=== PATIENT | male | born 1975 | race Caucasian/White ===

== ENCOUNTER → 2020-11-24 12:02 | Outpatient (BNVA) | payer OTHER, SELFPAY | PROVIDERS: Visit Provider Internal Medicine | DX: K42.9 Umbilical hernia without obstruction or gangrene (principal) | CPT/HCPCS: 87635 ==

== ENCOUNTER 2020-11-28 08:36 | Day surgery (SDC) | payer OTHER, SELFPAY ==
--- NOTE | 2020-11-28 08:45 | ANES.PREANE2 ---
Pre-Anesthetic Assessment Pre-Anesthetic Assessment: Height/Weight: Height 1.91 m Weight 134.717 kg Preop Diagnosis: hematochezia Proposed Procedure: Operation Date: 11/28/20 10:15 Proposed Procedures p Colonoscopy 57552 k92.1(Not Applicable) - Oscar Faustin MD Familial anesthetic complications: None Last intake: > 8 hrs Social: Social History: No alcohol and No tobacco Exam: Pre-Anes Outpt Exam: alert, oriented x 3, clear to auscultation bilaterally and regular rate & rhythm Airway: Cervical ROM: WNL MP: 1 Dentition: Chipped and Other (poor dentition) Additional comments: full carroll Pulmonary: Pulmonary: EATON (deconditioned) Comments: states he's wheezy at night - CTA on exam GI: GI: GERD Metabolic: Metabolic: Morbid obesity Anesthetic Plan: ASA status: 3 Anesthesia: MAC Risk of > 500 ml blood loss (7ml/kg in children): No PFSH Anesthesia PFSH: Medical History Umbilical hernia without obstruction and without gangrene Social History Smoking and tobacco status: former smoker Data Anesthesia Cardiac Studies: No Data to Display
--- NOTE | 2020-11-28 09:18 | W.PM.OPSFHP ---
Same Day Surgery H&P Indication for Procedure/HPI DATE OF PROCEDURE: November 28, 2020 CHIEF COMPLAINT/INDICATIONFOR SURGICAL PROCEDURE: Hematochezia PREOP DIAGNOSIS: hematochezia PLANNED PROCEDRUE: Operation Date: 11/28/20 10:15 Proposed Procedures p Colonoscopy 25795 k92.1(Not Applicable) - Oscar Faustin MD Medications/Allergies* Home Medications Medication Instructions Recorded Confirmed Type cholecalciferol (vitamin D3) 50 50 mcg PO DAILY 11/03/20 11/25/20 History mcg (2,000 unit) capsule lithium carbonate 450 mg 450 mg PO DAILY 11/03/20 11/25/20 History tablet,extended release omega-3 fatty acids 1,000 mg 1,000 mg PO DAILY 11/03/20 11/25/20 History capsule omeprazole 20 mg capsule,delayed 20 mg PO DAILY 11/03/20 11/25/20 History release multivitamin 1 tab PO DAILY 11/25/20 11/25/20 History Allergies/Adverse Reactions Allergy/AdvReac Type Severity Reaction Status Date / Time No Known Allergies Allergy Verified 11/24/20 10:51 Pertinent History/Comorbid Conditions* Medical History (Updated 11/24/20 @ 11:22 by Oscar Faustin MD) Umbilical hernia without obstruction and without gangrene Social History Smoking and tobacco status: former smoker Pertinent Exam Findings alert, oriented x 3, clear to auscultation bilaterally, regular rate & rhythm, operative site marked and procedure specific exam findings Recommendations Surgery/Procedure today Coding Level of Care Code Acute Health Occupations Teacher for Getachew Guallpa
[2020-11-28 09:23] VITALS: BP 122/91; PULSE 106; RESP 18; TEMP 36.3; O2SAT 95
[2020-11-28] MEDS: sodium chloride 0.9% 1,000 ML 30 ML IV (09:54)
[2020-11-28 11:18] VITALS: BP 121/90; PULSE 93; RESP 18; TEMP 36.2; O2SAT 94
--- NOTE | 2020-11-28 11:21 | ANE.PACU2 ---
Inpatient post-anesthesia follow up: Airway intact: Yes Vital signs: Temperature 97.4 F Pulse Rate 106 Respiratory Rate 18 Blood Pressure 122/91 Pulse Oximetry 95 Oxygen Delivery Me thod Room Air Oxygen Flow Rate Fraction of Inspir ed Oxygen Hydration adequate: Yes Nausea and vomiting: No Pain level: 1 Mental status: Baseline
[2020-11-28 11:36] VITALS: BP 136/100; PULSE 94; RESP 18; O2SAT 94
== END 2020-11-28 11:48 | disposition home or self-care (01) ==
PROVIDERS: Visit Provider Internal Medicine
PROC: 0DJD8ZZ Inspection of Lower Intestinal Tract, Via Natural or Artificial Opening Endoscopic (ICD-10-PCS; CPT 45378; principal; 2020-11-28 10:15)
DX: K92.1 Melena (principal); D12.5 Benign neoplasm of sigmoid colon; Z87.891 Personal history of nicotine dependence; E66.01 Morbid (severe) obesity due to excess calories; Z68.37 Body mass index [BMI] 37.0-37.9, adult; K21.9 Gastro-esophageal reflux disease without esophagitis
CPT/HCPCS: 45385; 88305; 96360; 96361; J2704; J7030

== ENCOUNTER → 2020-11-30 13:19 | Outpatient (BNVA) | payer OTHER, SELFPAY | PROVIDERS: Visit Provider Surgery | DX: Z01.812 Encounter for preprocedural laboratory examination (principal); K92.1 Melena; Z20.822 Contact with and (suspected) exposure to COVID-19 | CPT/HCPCS: 87635 ==

== ENCOUNTER 2020-12-06 05:46 | Day surgery (SDC) | payer OTHER, SELFPAY ==
[2020-12-05 10:54] VITALS: BMI 37.1
[2020-12-06] VITALS (8 sets, daily range): BP systolic 113–127; BP diastolic 90–94; PULSE 68–78; RESP 17–22; TEMP 36.3–36.4; O2SAT 94–99
[2020-12-06] MEDS: sodium chloride 0.9% 1,000 ML 30 ML IV (06:44)
[2020-12-06] MEDS: acetaminophen 1,000 MG/100 ML PIGGYBACK 400 MG IV (06:45)
--- NOTE | 2020-12-06 06:47 | P.HP_ITS ---
Same Day Surgery H&P Indication for Procedure/HPI DATE OF PROCEDURE: December 06, 2020 CHIEF COMPLAINT/INDICATIONFOR SURGICAL PROCEDURE: My hernia is bothering me PREOP DIAGNOSIS: Umbilical hernia PLANNED PROCEDRUE: Operation Date: 12/06/20 07:30 Proposed Procedures p Open umbilical hernia repair 24672 k42.9(Not Applicable) - Jayden Byrne MD This is a pleasant 45 years old gentleman comes today for elective open umbilical hernia repair, patient was seen and examined in my office back in November 03, 2020. Had a recent colonoscopy that showed tubular adenoma. ROS All systems have been reviewed negative except as per the above or per problem list Medications/Allergies* Home Medications Medication Instructions Recorded Confirmed Type cholecalciferol (vitamin D3) 50 50 mcg PO DAILY 11/03/20 12/06/20 History mcg (2,000 unit) capsule lithium carbonate 450 mg 450 mg PO DAILY 11/03/20 12/06/20 History tablet,extended release omega-3 fatty acids 1,000 mg 1,000 mg PO DAILY 11/03/20 12/06/20 History capsule omeprazole 20 mg capsule,delayed 20 mg PO DAILY 11/03/20 12/06/20 History release multivitamin 1 tab PO DAILY 11/25/20 12/06/20 History Allergies/Adverse Reactions Allergy/AdvReac Type Severity Reaction Status Date / Time No Known Allergies Allergy Verified 12/06/20 06:48 Current Medications: Generic Name Dose Route Start Last Admin Trade Name Freq PRN Reason Stop Dose Admin Sodium Chloride 1,000 mls @ 30 mls/hr 12/06/20 06:00 12/06/20 06:44 Sodium Chloride 0.9% IV 12/07/20 05:59 30 mls/hr .Q24H LINSEY Administration Pertinent History/Comorbid Conditions* Medical History (Updated 11/24/20 @ 11:22 by Oscar Faustin MD) Umbilical hernia without obstruction and without gangrene Social History Smoking and tobacco status: former smoker Pertinent Exam Findings alert, oriented x 3, clear to auscultation bilaterally, regular rate & rhythm, operative site marked and procedure specific exam findings (Abdominal examination nontender nondistended soft umbilical hernia stable) Recommendations Surgery/Procedure today (Open umbilical hernia repair with possible mesh placement) Coding Level of Care Code Acute Fuel Testing Technician for Getachew Guallpa
--- NOTE | 2020-12-06 07:28 | P.ANESASSM_ITS ---
Pre-Anesthetic Assessment Pre-Anesthetic Assessment: Height/Weight: Height 1.91 m Weight 134.717 kg Temp Pulse Resp BP Pulse Ox 97.3 F L 78 18 115/90 96 12/06/20 06:15 12/06/20 06:15 12/06/20 06:15 12/06/20 06:15 12/06/20 06:15 Preop Diagnosis: Umbilical hernia Proposed Procedure: Operation Date: 12/06/20 07:30 Proposed Procedures p Open umbilical hernia repair 70399 k42.9(Not Applicable) - Jayden Byrne MD Was Beta Nando taken within 24 hours: N/A Was Clonidine taken within 24 hours: N/A Last intake: Intake Last Liquid Date 12/05/20 Last Liquid Time 22:30 Last Solid Date 12/05/20 Last Solid Time 20:00 Social: Social History: No alcohol and No tobacco Exam: Pre-Anes Outpt Exam: alert, oriented x 3, clear to auscultation bila terally and regular rate & rhythm Airway: Submandibular: WNL Cervical ROM: WNL MP: 2 Dentition: Chipped Additional comments: Multiple caries, carroll GI: GI: GERD Metabolic: Metabolic: Morbid obesity Anesthetic Plan: ASA status: 3 Anesthesia: General Risk of > 500 ml bloo d loss (7ml/kg in children): No Meds/Allergies Current Medications: Current Medications Generic Name Dose Route Start Last Admin Trade Name Freq PRN Reason Stop Dose Admin Sodium Chloride 1,000 mls @ 30 ml s/hr 12/06/20 06:00 12/06/20 06:44 Sodium Chloride 0.9% IV 12/07/20 05:59 30 mls/hr .Q24H LINSEY Administration PFSH Anesthesia PFSH: Medical History Umbilical hernia without obstruction and without gangrene Social History Smoking and tobacco status: former smoker Data Anesthesia Cardiac Studies: No Data to Display
[2020-12-06] MEDS: lidocaine 2% INJ 20 mL (07:48)
[2020-12-06] MEDS: ceFAZolin 1,000 mg SDV 1000 MG (07:54)
--- NOTE | 2020-12-06 08:19 | PM.OP ---
Operative Report Date of procedure: December 06, 2020 Pre-op Diagnosis: Umbilical hernia Post-op diagnosis: same (Incarcerated omentum within the umbilical hernial sac) Post-op Findings: Fascial defect about 1-2 inches in diameter Procedure Done: Open umbilical hernia repair with mesh placement Implants: Polypropylene mesh Specimens removed/disposition: Hernia sac and contents Surgeon: Jayden Byrne Paint Tester: Surgical angie Bradshaw nurse Naomie Anesthesia: General (GETA ADMITTANCE ATTENDANT Will) Estimated blood loss (mL): 5 Condition: stable Disposition: same day Brief History: Symptomatic umbilical hernia. Procedure: Patient was identified in holding area and the site of the hernia was marked by me ,Patient was brought then to the operating room, general endotracheal anesthesia was administered by the anesthesia provider.prophylactic IV antibiotics were given per protocol Time-out was done verifying the patient's name/date of /planned procedure and destination after the procedure, all were in agreement. SCDs confirmed to be functioning, preoperative antibiotics administered per protocol, and beta alejandro protocol was confirmed. Patient was given prophylactic heparin subcutaneous prior to surgery Prep and drape of the abdomen was done under the usual sterile technique. I started by Infraumbilical skin incision , I was able to identify the incarcerated umbilical hernia, dissection was carried all the way down to the fascia, hernia sac was then opened and the sac was excised in addition to excess omental tissues.Tissues excise sent for permanent pathology. Contents were viable. I was able to free the overlying fat on top of the fascia, facilitate primary closure At that point the fascial defect was about inch to 2 inches in diameter, after freeing all the adhesions, under direct visualization I was able to use #1 PDS to repair the defect primarily, as an interrupted figure of 8 sutures, thorough irrigation of the wound was then achieved and hemostasis. A piece of polypropylene mesh was anchored to the fascia tension-free using interrupted 2-0 silk sutures followed by 2-0 Vicryl by deep dermal interrupted stitches, followed by 3-0 Vicryl, then 4-0 Monocryl was used for subcuticular closure of the skin incision. Lidocaine 2% was used for local infiltration to help postoperative pain Surgical glue was then applied followed by an abdominal binder Counts of sponges, needles and instruments were completed at the end of the procedure Patient tolerated the procedure well and was taken to the recovery area in stable condition I was present for the whole entire procedure
[2020-12-06] MEDS: fentaNYL 50 mcg/mL INJ 2mL IVP (08:41)
[2020-12-06] MEDS: HYDROcodone-acetaminophen 5-325 mg Tablet 1 TAB PO (09:47)
--- NOTE | 2020-12-06 15:39 | ANE.PACU2 ---
Inpatient post-anesthesia follow up: Airway intact: Yes Vital signs: Temperature 97.5 F Pulse Rate 68 Respiratory Rate 20 Blood Pressure 127/91 Pulse Oximetry 96 Oxygen Delivery Me thod Nasal Cannula Oxygen Flow Rate 3 Fraction of Inspir ed Oxygen Hydration adequate: Yes Nausea and vomiting: No Pain level: 2 Mental status: Baseline
== END 2020-12-06 09:48 | disposition home or self-care (01) ==
PROVIDERS: PCP Nurse Practitioner; Visit Provider Surgery
PROC: (CPT 49587; principal; 2020-12-06 07:30)
DX: K42.0 Umbilical hernia with obstruction, without gangrene (principal); Z87.891 Personal history of nicotine dependence; K21.9 Gastro-esophageal reflux disease without esophagitis; E66.01 Morbid (severe) obesity due to excess calories; Z68.37 Body mass index [BMI] 37.0-37.9, adult
CPT/HCPCS: 49587; 88302; 96374; C1781; J0690; J1100; J2405; J2704; J2710; J3010; J3490; J7030

== ENCOUNTER 2021-01-16 14:57 | Emergency (ER) | payer OTHER, SELFPAY ==
[2021-01-16 15:21] VITALS: BP 145/90; PULSE 95; RESP 12; TEMP 36.4; O2SAT 94
--- NOTE | 2021-01-16 17:25 | ED_ITS ---
HPI - Back Pain/Injury General: Chief Complaint: Back Pain/Injury Stated Complaint: diff breathing due to back pain Time Seen by Provider: 01/16/21 17:09 History of Present Illness: HPI Narrative: Patient with history of bilateral sciatica. Patient complained about that now for the last 3 days without a medication and is having spasms would like medication because [facility] and and is unable get medication MD elicited complaint: back pain Pertinent past history: prior back pain Timing: constant Severity: moderate Similar Symptoms Previously: Yes Quality: aching Location: lumbar spine and thoracic spine Radiation: buttocks, left upper leg and right upper leg Exacerbating factors: movement Relieving factors: immobilization Context: turning/twisting Associated symptoms: Reports no associated symptoms; Deny abdominal pain, chills, fever(s), nausea or vomiting Review of Systems Const: Denies: fever(s), chills or body aches Eyes: Denies: change in vision or blurry vision ENMT: Denies: throat pain or nasal congestion Card: Denies: chest pain or dyspnea on exertion Resp: Denies: dyspnea, productive cough or non-productive cough GI: Denies: abdominal pain, nausea or vomiting : Denies: difficulty urinating Musc: Reports: back pain; Denies: extremity pain Skin/Breast: Denies: rash Neuro: Denies: headache(s) Psych: Denies: anxiety or depression Sidney/Lymph: Denies: easy bruising PFSH ED PFSH: Medical History Post-op pain Umbilical hernia without obstruction and without gangrene Physical Exam Const: COMMON NORMALS: no acute distress GENERAL APPEARANCE: cooperative Back/Pelvis: THORACIC SPINE/UPPER BACK: Yes normal to inspection LUMBAR SPINE/LOWER BACK: Yes normal to inspection Neuro: COMMON NORMALS: moves all extremities, no focal motor deficits and no sensory deficits noted Psych: COMMON NORMALS: mental status grossly normal Course Vital Signs: Vital signs: Vital Signs Temperature 97.6 F 01/16/21 15:21 Pulse Rate 95 01/16/21 15:21 Respiratory Rate 12 01/16/21 15:21 Blood Pressure 145/90 01/16/21 15:21 Pulse Oximetry 94 01/16/21 15:21 MDM - Back Pain/Injury MDM Narrative: Medical decision making narrative: Bilateral lumbar sciatica. Medications given prescription provided patient [facility]. No heavy lifting over 10 pounds for next 2 to 3 weeks. Discharge Plan Discharge Patient Disposition: Home Clinical Impression: Sciatica Qualifiers: Laterality: bilateral Qualified Code(s): M54.31 - Sciatica, right side Condition: Stable Prescriptions: New prednisone 20 mg tablet 20 mg PO DAILY Qty: 7 RF: 0 Celebrex 100 mg capsule 100 mg PO BID Qty: 20 RF: 0 cyclobenzaprine 5 mg tablet 5 mg PO TID PRN (Reason: muscle spasm) Qty: 10 RF: 0 No Action hydrocodone-acetaminophen 5-325 mg tablet 1 tab PO Q6H PRN (Reason: pain) 7 Days Qty: 28 RF: 0 cholecalciferol (vitamin D3) 50 mcg (2,000 unit) capsule 50 mcg PO DAILY RF: 0 omega-3 fatty acids [Fish Oil Concentrate] 1,000 mg capsule 1,000 mg PO DAILY RF: 0 lithium carbonate 450 mg tablet extended release 450 mg PO DAILY RF: 0 omeprazole 20 mg capsule,delayed release(DR/EC) 20 mg PO DAILY RF: 0 hydrocodone-acetaminophen 5-325 mg tablet 1 tab PO Q6H PRN (Reason: pain) Qty: 28 RF: 0 multivitamin Tablet 1 tab PO DAILY RF: 0 Discharge Orders: Discharge ED (Routine); Ordered 01/16/21 Ordered By: Jose King Referrals: Saima Manuel, FLAME CUTTING MACHINE OPERATOR HELPER-C [Primary Care Provider] - Discharge Diet: Usual diet Discharge Activity: Increase activity as tolerated Patient Instructions: Sciatica (ED) Activity Restrictions/Additional Instructions: Follow-up with medical provider as directed. Take medications as prescribed. Return to the ER or your medical provider if condition worsens. Please read and understand discharge instructions. If any questions ask please. Coding Level of Care Code ED Brick Siding Applicator for Sarahg Fwd Exam Expanded Problem Focused
[2021-01-16] MEDS: CELEcoxib 200 mg Capsule 400 MG PO (17:51)
[2021-01-16] MEDS: cyclobenzaprine 10 mg Tablet PO (17:51)
[2021-01-16] MEDS: predniSONE 20 mg Tablet 60 MG PO (17:51)
== END 2021-01-16 17:53 | disposition home or self-care (01) ==
PROVIDERS: Emergency Provider Nurse Practitioner Family; PCP Emergency Medicine Emergency Medical Services
DX: M54.31 Sciatica, right side (principal)
CPT/HCPCS: 99283; J7512

== ENCOUNTER → 2021-03-08 14:00 | Outpatient (BNVA) | payer OTHER, SELFPAY | PROVIDERS: PCP Emergency Medicine Emergency Medical Services; Visit Provider Nurse Practitioner | DX: G43.009 Migraine without aura, not intractable, without status migrainosus (principal); Z87.891 Personal history of nicotine dependence | CPT/HCPCS: 99204 ==

== ENCOUNTER → 2021-03-09 13:41 | Outpatient (BNVA) | payer OTHER, SELFPAY | PROVIDERS: PCP Emergency Medicine Emergency Medical Services; Visit Provider Surgery | DX: Z20.822 Contact with and (suspected) exposure to COVID-19 (principal); Z11.52 Encounter for screening for COVID-19 | CPT/HCPCS: 87635 ==

== ENCOUNTER 2021-03-15 05:48 | Day surgery (SDC) | payer OTHER, SELFPAY ==
[2021-03-15 06:00] VITALS: BP 122/92; PULSE 93; RESP 20; TEMP 36.8; O2SAT 96
[2021-03-15] MEDS: sodium chloride 0.9% 1,000 ML 30 ML IV (06:34)
--- NOTE | 2021-03-15 06:36 | P.HP_ITS ---
Same Day Surgery H&P Indication for Procedure/HPI DATE OF PROCEDURE: March 15, 2021 CHIEF COMPLAINT/INDICATIONFOR SURGICAL PROCEDURE: Abdominal pain PREOP DIAGNOSIS: Acid reflux and abdominal pain PLANNED PROCEDRUE: Operation Date: 03/15/21 07:00 Proposed Procedures p EGD 99164 R14.0(Not Applicable) - Jayden Byrne MD 02/01/2021 Patient comes today status post open umbilical hernia repair with mesh placement on 12/06/2020. Overall doing well with regard to his surgery and healing good. Patient continues to complain of abdominal bloating and discomfort. Undergone a colonoscopy back in 11/28/2020 and adenomatous polyp was removed at that time otherwise normal findings. Patient reports chronic acid reflux in spite of being on PPI therapy for more than 6 months. Still has his gallbladder. He has been treated for irritable bowel syndrome per his description and his not feeling any sign of improvement. 03/15/2021 interim history Patient comes today for diagnostic EGD. Patient did not get his ultrasound of the liver and gallbladder yet. ROS All systems have been reviewed negative except as per the above or per problem list. Medications/Allergies* Home Medications Medication Instructions Recorded Confirmed Type cholecalciferol (vitamin D3) 50 50 mcg PO DAILY 11/03/20 03/10/21 History mcg (2,000 unit) capsule omega-3 fatty acids 1,000 mg 1,000 mg PO DAILY 11/03/20 03/15/21 History capsule omeprazole 20 mg capsule,delayed 20 mg PO DAILY 11/03/20 03/10/21 History release multivitamin 1 tab PO DAILY 11/25/20 03/10/21 History gabapentin 300 mg capsule 300 mg PO TID 03/08/21 03/10/21 History hydroxyzine HCl 10 mg tablet 10 mg PO TID PRN 03/08/21 03/10/21 History lithium carbonate 450 mg 450 mg PO .COMPLEX 03/08/21 03/10/21 History tablet,extended release trazodone 50 mg tablet 50 mg PO DAILY 03/08/21 03/10/21 History sumatriptan succinate See Rx Instructions PO .COMPLEX PRN 03/10/21 03/15/21 History Allergies/Adverse Reactions Allergy/AdvReac Type Severity Reaction Status Date / Time No Known Allergies Allergy Verified 03/15/21 06:40 Current Medications: Generic Name Dose Route Start Last Admin Trade Name Freq PRN Reason Stop Dose Admin Sodium Chloride 1,000 mls @ 30 mls/hr 03/15/21 06:00 03/15/21 06:34 Sodium Chloride 0.9% IV 03/16/21 05:59 30 mls/hr .Q24H LINSEY Administration Pertinent History/Comorbid Conditions* Medical History (Updated 02/03/21 @ 06:30 by Jayden Byrne MD) Post-op pain Umbilical hernia without obstruction and without gangrene Family History (Updated 03/08/21 @ 14:51 by Rosalind Mckenna LPN) Diabetes Father Social History Smoking and tobacco status: former smoker Alcohol intake: never Pertinent Exam Findings alert, oriented x 3, clear to auscultation bilaterally, regular rate & rhythm and procedure specific exam findings (Abdominal examination nontender nondistended soft, obese) Recommendations Surgery/Procedure today (Diagnostic EGD with possible biopsy) Coding Level of Care Code Acute Medical Transcription Supervisor for Getachew Guallpa
--- NOTE | 2021-03-15 06:44 | ANES.PREANE2 ---
Pre-Anesthetic Assessment Pre-Anesthetic Assessment: Height/Weight: Height 1.91 m Weight 142.882 kg Temp Pulse Resp BP Pulse Ox 98.2 F 93 20 H 122/92 96 03/15/21 06:00 03/15/21 06:00 03/15/21 06:00 03/15/21 06:00 03/15/21 06:00 Preop Diagnosis: Acid reflux and abdominal pain Proposed Procedure: Operation Date: 03/15/21 07:00 Proposed Procedures p EGD 48136 R14.0(Not Applicable) - Jayden Byrne MD Was Beta Nando taken within 24 hours: N/A Was Clonidine taken within 24 hours: N/A Last intake: Intake Last Liquid Date 03/14/21 Last Liquid Time 23:00 Last Solid Date 03/14/21 Last Solid Time 17:00 Social: Social History: No alcohol and No tobacco Comment: quit smoking 6 months ago Exam: Pre-Anes Outpt Exam: alert, oriented x 3 and regular rate & rhythm Airway: Submandibular: WNL Cervical ROM: WNL Dentition: Full History/ROS: No significant history except as noted Pulmonary: Pulmonary: Asthma and Sleep apnea CV/HEM: CV/HEM: None reported : : None reported Hepatic: Hepatic: None reported GI: GI: GERD Metabolic: Metabolic: Morbid obesity Musc/skel: Musc/skel: Lower Back Pain Neuropsych: Neuropsych: Depression Comments: PTSD Anesthetic Plan: ASA status: 3 Anesthesia: Anesthesia Evaluation and MAC Risk of > 500 ml blood loss (7ml/kg in children): No Meds/Allergies Current Medications: Current Medications Generic Name Dose Route Start Last Admin Trade Name Freq PRN Reason Stop Dose Admin Sodium Chloride 1,000 mls @ 30 ml s/hr 03/15/21 06:00 03/15/21 06:34 Sodium Chloride 0.9% IV 03/16/21 05:59 30 mls/hr .Q24H LINSEY Administration PFSH Anesthesia PFSH: Medical History (Updated 03/08/21 @ 14:51 by Rosalind Mckenna LPN) Post-op pain Umbilical hernia without obstruction and without gangrene Family History (Updated 03/08/21 @ 14:51 by Rosalind Mckenna LPN) Father Diabetes Social History (Updated 03/08/21 @ 14:51 by Rosalind Mckenna LPN) Smoking and tobacco status: former smoker Alcohol intake: never Data Anesthesia Cardiac Studies: No Data to Display
[2021-03-15 07:08] VITALS: BP 118/93; PULSE 76; RESP 16; TEMP 36.3; O2SAT 93
[2021-03-15 07:18] VITALS: BP 149/90; PULSE 85; RESP 16; O2SAT 93
--- NOTE | 2021-03-15 14:28 | ANE.PACU2 ---
Inpatient post-anesthesia follow up: Airway intact: Yes Vital signs: Temperature 97.3 F Pulse Rate 85 Respiratory Rate 16 Blood Pressure 149/90 Pulse Oximetry 93 Oxygen Delivery Me thod Room Air Oxygen Flow Rate Fraction of Inspir ed Oxygen Hydration adequate: Yes Nausea and vomiting: No Pain level: 1 Mental status: Baseline
[2021-03-16 07:52] LABS: H. Pylori / CLO Test Negative
== END 2021-03-15 07:35 | disposition home or self-care (01) ==
PROVIDERS: Visit Provider Surgery
PROC: 0DJ08ZZ Inspection of Upper Intestinal Tract, Via Natural or Artificial Opening Endoscopic (ICD-10-PCS; CPT 43235; principal; 2021-03-15 07:00)
DX: R10.13 Epigastric pain (principal); K21.00 Gastro-esophageal reflux disease with esophagitis, without bleeding; K29.70 Gastritis, unspecified, without bleeding; R14.0 Abdominal distension (gaseous); Z98.890 Other specified postprocedural states; Z87.891 Personal history of nicotine dependence; Z87.19 Personal history of other diseases of the digestive system
CPT/HCPCS: 43239; 87077; 96360; J2704; J3010; J7030

== ENCOUNTER 2021-03-17 08:45 | Outpatient (CLI) | payer OTHER, SELFPAY ==
--- NOTE | 2021-03-17 08:45 | US_ITS ---
WS: [id number] RIGHT UPPER QUADRANT ULTRASOUND HISTORY: R10.9 - Unspecified abdominal pain COMPARISON: None available. Liver: 15.4 cm in length. Liver is top normal size and extremely dense. Poor penetration of the ultra sound resulting in incomplete visualization of the entire liver. Very coarsened echotexture. No mass or bile duct dilatation noted. Gallbladder: Normally distended gallbladder with no stones or wall thickening. CBD: 0.3 cm Pancreas: Normal size and echogenicity. Right kidney: 13.0 cm in length. Normal size and echogenicity. No hydronephrosis or mass. Aorta and IVC: Unremarkable abdominal aorta and IVC. No ascites. US/US gall bladder [id number] IMPRESSION: 1. Normal gallbladder. 2. Severe hepatic steatosis.
== END 2021-03-17 08:46 | disposition home or self-care (01) ==
LOC: US 08:47
PROVIDERS: PCP Nurse Practitioner; Visit Provider Surgery
DX: R10.9 Unspecified abdominal pain (principal); K76.0 Fatty (change of) liver, not elsewhere classified
CPT/HCPCS: 76705

== ENCOUNTER 2021-10-24 09:45 | Outpatient (CLI) | payer OTHER, SELFPAY ==
--- NOTE | 2021-10-24 10:27 | NM_ITS ---
WS: [id number] NUCLEAR MEDICINE HIDA SCAN WITH GALLBLADDER EJECTION FRACTION HISTORY: RIGHT upper quadrant pain and diarrhea. COMPARISON: Gallbladder ultrasound 03/17/2021 TECHNIQUE: The patient was intravenously injected with 7.6 mCi of TC99m Mebrofenin. Immediate imaging over the right upper quadrant was followed by 5 minute image and additional images for a total of 60 minutes. Normal uptake of radiotracer throughout the liver. Activity identified in the gallbladder at 10 minutes and well distended by 60 minutes. Activity in the proximal small bowel was seen by 15 minutes. Good washout of the radiotracer from the liver by 60 minutes. The patient then drank 8 ounces of Ensure Plus. Ejection fraction at 72 minutes was 74%. Normal GB ej ection fraction is 35-75%. Post fatty meal symptoms: None. NM/NM hepatobiliary w phar* [id number] IMPRESSION: 1. Normal HIDA scan. 2. Normal gallbladder ejection fraction.
== END 2021-10-24 09:46 | disposition home or self-care (01) ==
LOC: RAD 09:47
PROVIDERS: PCP Nurse Practitioner; Visit Provider Nurse Practitioner
DX: Z01.89 Encounter for other specified special examinations (principal); R10.11 Right upper quadrant pain; R19.7 Diarrhea, unspecified
CPT/HCPCS: 78227; A9537

== ENCOUNTER 2022-01-24 03:29 | Emergency (ER) | payer OTHER, SELFPAY ==
[2022-01-24] VITALS (9 sets, daily range): BP systolic 98–130; BP diastolic 56–98; PULSE 58–72; RESP 16–19; TEMP 36.7; O2SAT 95–98; BMI 34.4
--- NOTE | 2022-01-24 03:36 | ED_ITS ---
Documented by User: Brendon Grady MD 01/24/22 18:17 HPI - Abdominal Pain General: Chief Complaint: Abdominal Pain Stated Complaint: abd pain Time Seen by Provider: 01/24/22 03:35 History of Present Illness: Mr. Wright is a 46-year-old gentleman with histo ry of GERD, IBS with diarrhea, history of umbilical hernia s/p repair who presents to the due to abdominal pain. Onset of symptoms was approximately 2 to 3 hours ago woke him up from sleep. He endorses right upper and lower quadrant abdominal pain. He had a normal bowel movement without significant relief. Burning in quality. Moderate in intensity though now somewhat improved. No other specific changes in health, exacerbating, or alleviating factors identified. Onset (ago): hour(s) Pain Consistency: constant Location: RUQ and RLQ Severity: moderate Quality: burning Radiation: none Migration to: no migration Exacerbating factors: nothing Relieving factors: nothing Associated Symptoms: Reports no associated symptoms Review of Systems General: Reports: 10 or more systems reviewed and unremarkable except in HPI and below PFSH ED PFSH: Medical History Gastritis Post-op pain Umbilical hernia without obstruction and without gangrene Family History Father Diabetes Social History Alcohol intake: never Physical Exam Const: COMMON NORMALS: alert GENERAL APPEARANCE: cooperative and well developed HENMT: COMMON NORMALS: normocephalic and atraumatic HEAD & SCALP: normocephalic and atraumatic Eye: COMMON NORMALS: conjunctivae normal CONJUNCTIVA: Yes conjunctivae normal SCLERA: sclerae normal Neck/C-Spine: COMMON NORMALS: supple GENERAL: Yes trachea midline Resp: COMMON NORMALS: normal respiratory effort and clear to auscultation bilaterally EFFORT & INSPECTION: Yes able to speak in complete sentences AUSCULTATION: clear to auscultation bilaterally Cardio: COMMON NORMALS: regular rate and regular rhythm RATE: regular rate RHYTHM: regular rhythm GI: COMMON NORMALS: Soft to palpation PALPATION: Yes Soft to palpation, Yes Tenderness to palpation present (GI) (mild), No Guarding due to palpation present (GI) and No Rigid due to palpation OTHER: No evidence of peritonitis, no rebound tenderness, negative tenderness to heel percussion. Extremity: GENERAL: Yes normal exam except as noted and No edema Neuro: COMMON NORMALS: moves all extremities SENSORIUM/ORIENTATION: Yes alert and No Orientation impaired Psych: COMMON NORMALS: mental status grossly normal and Normal thought process present THOUGHT PROCESS: Normal thought process present Course Vital Signs: Vital signs: Vital Signs Temperature 98.1 F 01/24/22 03:31 Pulse Rate 72 01/24/22 07:49 Respiratory Rate 19 H 01/24/22 07:49 Blood Pressure 130/98 01/24/22 07:49 Pulse Oximetry 98 01/24/22 07:49 Oxygen Delivery Me thod 01/24/22 07:41 MDM - Abdominal Pain Medical Decision Making 46-year-old gentleman presenting with abdominal pain that woke him up from sleep. Has been at baseline health. Abdominal exam with mild tenderness. Labs notable for leukocytosis. Given this elevation in white blood cell count I feel that imaging is appropriate. CT scan ordered and read pending at time of patient care handoff. Initial BMP hemolyzed and repeat pending. Handed off to Dr. Graham pending completion of ED evaluation with likely plan for outpatient management depending on CT scan results. Medical Records I reviewed the patient's medical records. Lab Data I reviewed the patient's lab results. : 01/24/22 04:10 01/24/22 05:27 Labs/Radiology: Radiology Impressions Abdomen/Pelvis CT 01/24/22 04:57 IMPRESSION: No acute abdominopelvic abnormality identified. COMMENTS: Evaluation of solid organs and vascular structures is limited as no IV contrast was administered. Laboratory Results WBC 17.1 10^3/uL (4.0-10.0) H 01/24/22 04:10 RBC 5.38 10^6/uL (4.1-5.3) H 01/24/22 04:10 Hgb 16.3 g/dL (11.7-16.6) 01/24/22 04:10 Hct 50.9 % (42.0-52.0) 01/24/22 04:10 MCV 94.6 fl (80-94) H 01/24/22 04:10 MCH 30.3 pg (28.0-34.0) 01/24/22 04:10 MCHC 32.0 g/dL (30.0-36.0) 01/24/22 04:10 RDW 12.3 % (12.1-15.1) 01/24/22 04:10 Plt Count 230 10^3/cmm (130-400) 01/24/22 04:10 MPV 12.2 fL (7.4-10.4) H 01/24/22 04:10 Neut % (Auto) 81.5 % 01/24/22 04:10 Lymph % (Auto) 11.6 % 01/24/22 04:10 [place] % (Auto) 5.1 % 01/24/22 04:10 Eos % (Auto) 0.8 % 01/24/22 04:10 Baso % (Auto) 0.5 % 01/24/22 04:10 Neut # (Auto) 13.91 10^3/uL (1.8-7.7) H 01/24/22 04:10 Lymph # (Auto) 2.0 10^3/uL (0.8-4.8) 01/24/22 04:10 [place] # (Auto) 0.9 10^3/uL (0.2-0.9) 01/24/22 04:10 Eos # (Auto) 0.1 10^3/uL (0.0-0.8) 01/24/22 04:10 Baso # (Auto) 0.1 10^3/uL (0.0-0.1) 01/24/22 04:10 Nucleated RBC % (auto) 0 % 01/24/22 04:10 Nucleated RBCs # 0.0 /100WBC 01/24/22 04:10 Sodium 137 mmol/L (136-145) 01/24/22 05:27 Potassium 4.0 mmol/L (3.5-5.1) 01/24/22 05:27 Chloride 101 mmol/L (98-107) 01/24/22 05:27 Carbon Dioxide 23 mmol/L (22-29) 01/24/22 05:27 Anion Gap 17.0 (5-19) 01/24/22 05:27 BUN 13 mg/dL (6-20) 01/24/22 05:27 Creatinine 1.4 mg/dL (0.7-1.2) H 01/24/22 05:27 GFR Calculation 55.1 mL/min (90-130) L 01/24/22 05:27 Glucose 100 mg/dL (65-115) 01/24/22 05:27 Calculated Osmolality 284 mOsm/kg (285-295) L 01/24/22 05:27 Calcium 9.6 mg/dL (8.5-10.5) 01/24/22 05:27 Total Bilirubin 0.5 mg/dL (0.15-1.2) 01/24/22 05:27 AST 20 U/L (0-40) 01/24/22 05:27 ALT 28 U/L (0-41) 01/24/22 05:27 Alkaline Phosphatase 61 U/L (40-130) 01/24/22 05:27 Total Protein 7.3 g/dL (6.6-8.7) 01/24/22 05:27 Albumin 4.4 g/dL (3.5-5.2) 01/24/22 05:27 Globulin 2.9 g/dL (1.3-4.6) 01/24/22 05:27 Lipase 40 U/L (13-60) 01/24/22 05:27 Urine Color Yellow (Yellow) 01/24/22 03:57 Urine Appearance Clear (CLEAR) 01/24/22 03:57 Urine pH 5 (5-7) 01/24/22 03:57 Ur Specific [place] 1.020 (1.005-1.030) 01/24/22 03:57 Urine Protein Neg (Negative) 01/24/22 03:57 Urine Glucose (UA) Norm (Normal) 01/24/22 03:57 Urine Ketones 2+ (Negative) H 01/24/22 03:57 Urine Blood Neg (Negative) 01/24/22 03:57 Urine Nitrate Negative (Negative) 01/24/22 03:57 Urine Bilirubin Neg (Negative) 01/24/22 03:57 Urine Urobilinogen Norm mg/dL (Negative) 01/24/22 03:57 Ur Leukocyte Esterase Negative (Negative) 01/24/22 03:57 Discharge Plan Discharge Patient Disposition: Home Clinical Impression: Irritable bowel syndrome with constipation Condition: Stable Prescriptions: New Protonix 40 mg tablet,delayed release (DR/EC) 40 mg PO BID Qty: 60 0RF Discontinued omeprazole 20 mg capsule,delayed release(DR/EC) 20 mg PO BIDWM Qty: 60 3RF No Action hydroxyzine HCl 10 mg tablet 10 mg PO TID PRN (Reason: Anxiety) trazodone 50 mg tablet 50 mg PO DAILY gabapentin 300 mg capsule 300 mg PO TID levothyroxine 88 mcg capsule 88 mcg PO DAILY cholecalciferol (vitamin D3) 50 mcg (2,000 unit) capsule 50 mcg PO DAILY omega-3 fatty acids [Fish Oil Concentrate] 1,000 mg capsule 1,000 mg PO DAILY lithium carbonate 450 mg tablet extended release 450 mg PO .COMPLEX Rx Instructions: 450 mg PO 8 am 10 pm; topiramate 50 mg tablet 50 mg PO BID Qty: 60 3RF Rx Instructions: Take one tablet twice daily. multivitamin Tablet 1 tab PO DAILY cyclobenzaprine 5 mg tablet 5 mg PO TID PRN (Reason: muscle spasm) Qty: 10 0RF sumatriptan succinate 100 mg tablet See Rx Instructions PO .COMPLEX PRN (Reason: Headache) Rx Instructions: take 1 tab at onset of headache; if no relief, may repeat 1 tab after at least 2 hrs; max = 2 tabs/24 hrs PO Discharge Orders: Discharge ED (Routine); Ordered 01/24/22 Ordered By: Yandel Graham Referrals: Dasia Hsu FNP [Primary Care Provider] - Discharge Diet: Clear Liquid Discharge Activity: Increase activity as tolerated Patient Instructions: Opioid Safety, Pain Management Activity Restrictions/Additional Instructions: Clear liquid diet for next 24 to 48 hours and advance as tolerated. If symptoms persist recommend he follow-up with primary care. He may need further evaluation by gastroenterology. Sign Out Sign Out Data: Patient Sign Out occurred on 01/24/22 at 06:23. Patient's care was discussed, and care was transferred from to Yandel Graham DO. Coding Level of Care Code ED Lead Security Officer for [facility] Fwd Exam Comprehensive Documented by User: Yandel Graham DO 01/24/22 08:05 HPI - Abdominal Pain General: Chief Complaint: Abdominal Pain Stated Complaint: abd pain Time Seen by Provider: 01/24/22 03:35 PFSH ED PFSH: Medical History Gastritis Post-op pain Umbilical hernia without obstruction and without gangrene Family History Father Diabetes Social History Alcohol intake: never Course Vital Signs: Vital signs: Vital Signs Temperature 98.1 F 01/24/22 03:31 Pulse Rate 72 01/24/22 07:49 Respiratory Rate 19 H 01/24/22 07:49 Blood Pressure 130/98 01/24/22 07:49 Pulse Oximetry 98 01/24/22 07:49 Oxygen Delivery Me thod 01/24/22 07:41 MDM - Abdominal Pain Medical Decision Making 46-year-old gentleman presenting with abdominal pain that woke him up from sleep. Has been at baseline health. Abdominal exam with mild tenderness. Labs notable for leukocytosis. Given this elevation in white blood cell count I feel that imaging is appropriate. CT scan ordered and read pending at time of patient care handoff. Initial BMP hemolyzed and repeat pending. Handed off to Dr. Graham pending completion of ED evaluation with likely plan for outpatient management depending on CT scan results. 01/24/2022 8:04 AM Care assumed at change of shift. CT reviewed no acute findings noted. White count slightly elevated. Patient made note that he has had irritable bowel in the past he recently switched to a keto diet and since doing so he has been more constipated causing more abdominal cramping prior to that he had diarrhea. Discussed with him that the composition of a keto diet would lend itself to more constipation. Nothing acute on the CT Will change him from omeprazole to Protonix 40 twice daily refer him back to his primary care doctor symptoms persist consideration for GI consultation. Lab Data : 01/24/22 04:10 01/24/22 05:27 Labs/Radiology: Radiology Impressions Abdomen/Pelvis CT 01/24/22 04:57 IMPRESSION: No acute abdominopelvic abnormality identified. COMMENTS: Evaluation of solid organs and vascular structures is limited as no IV contrast was administered. Laboratory Results WBC 17.1 10^3/uL (4.0-10.0) H 01/24/22 04:10 RBC 5.38 10^6/uL (4.1-5.3) H 01/24/22 04:10 Hgb 16.3 g/dL (11.7-16.6) 01/24/22 04:10 Hct 50.9 % (42.0-52.0) 01/24/22 04:10 MCV 94.6 fl (80-94) H 01/24/22 04:10 MCH 30.3 pg (28.0-34.0) 01/24/22 04:10 MCHC 32.0 g/dL (30.0-36.0) 01/24/22 04:10 RDW 12.3 % (12.1-15.1) 01/24/22 04:10 Plt Count 230 10^3/cmm (130-400) 01/24/22 04:10 MPV 12.2 fL (7.4-10.4) H 01/24/22 04:10 Neut % (Auto) 81.5 % 01/24/22 04:10 Lymph % (Auto) 11.6 % 01/24/22 04:10 [place] % (Auto) 5.1 % 01/24/22 04:10 Eos % (Auto) 0.8 % 01/24/22 04:10 Baso % (Auto) 0.5 % 01/24/22 04:10 Neut # (Auto) 13.91 10^3/uL (1.8-7.7) H 01/24/22 04:10 Lymph # (Auto) 2.0 10^3/uL (0.8-4.8) 01/24/22 04:10 [place] # (Auto) 0.9 10^3/uL (0.2-0.9) 01/24/22 04:10 Eos # (Auto) 0.1 10^3/uL (0.0-0.8) 01/24/22 04:10 Baso # (Auto) 0.1 10^3/uL (0.0-0.1) 01/24/22 04:10 Nucleated RBC % (auto) 0 % 01/24/22 04:10 Nucleated RBCs # 0.0 /100WBC 01/24/22 04:10 Sodium 137 mmol/L (136-145) 01/24/22 05:27 Potassium 4.0 mmol/L (3.5-5.1) 01/24/22 05:27 Chloride 101 mmol/L (98-107) 01/24/22 05:27 Carbon Dioxide 23 mmol/L (22-29) 01/24/22 05:27 Anion Gap 17.0 (5-19) 01/24/22 05:27 BUN 13 mg/dL (6-20) 01/24/22 05:27 Creatinine 1.4 mg/dL (0.7-1.2) H 01/24/22 05:27 GFR Calculation 55.1 mL/min (90-130) L 01/24/22 05:27 Glucose 100 mg/dL (65-115) 01/24/22 05:27 Calculated Osmolality 284 mOsm/kg (285-295) L 01/24/22 05:27 Calcium 9.6 mg/dL (8.5-10.5) 01/24/22 05:27 Total Bilirubin 0.5 mg/dL (0.15-1.2) 01/24/22 05:27 AST 20 U/L (0-40) 01/24/22 05:27 ALT 28 U/L (0-41) 01/24/22 05:27 Alkaline Phosphatase 61 U/L (40-130) 01/24/22 05:27 Total Protein 7.3 g/dL (6.6-8.7) 01/24/22 05:27 Albumin 4.4 g/dL (3.5-5.2) 01/24/22 05:27 Globulin 2.9 g/dL (1.3-4.6) 01/24/22 05:27 Lipase 40 U/L (13-60) 01/24/22 05:27 Urine Color Yellow (Yellow) 01/24/22 03:57 Urine Appearance Clear (CLEAR) 01/24/22 03:57 Urine pH 5 (5-7) 01/24/22 03:57 Ur Specific [place] 1.020 (1.005-1.030) 01/24/22 03:57 Urine Protein Neg (Negative) 01/24/22 03:57 Urine Glucose (UA) Norm (Normal) 01/24/22 03:57 Urine Ketones 2+ (Negative) H 01/24/22 03:57 Urine Blood Neg (Negative) 01/24/22 03:57 Urine Nitrate Negative (Negative) 01/24/22 03:57 Urine Bilirubin Neg (Negative) 01/24/22 03:57 Urine Urobilinogen Norm mg/dL (Negative) 01/24/22 03:57 Ur Leukocyte Esterase Negative (Negative) 01/24/22 03:57 Discharge Plan Discharge Patient Disposition: Home Clinical Impression: Irritable bowel syndrome with constipation Condition: Stable Prescriptions: New Protonix 40 mg tablet,delayed release (DR/EC) 40 mg PO BID Qty: 60 0RF Discontinued omeprazole 20 mg capsule,delayed release(DR/EC) 20 mg PO BIDWM Qty: 60 3RF No Action hydroxyzine HCl 10 mg tablet 10 mg PO TID PRN (Reason: Anxiety) trazodone 50 mg tablet 50 mg PO DAILY gabapentin 300 mg capsule 300 mg PO TID levothyroxine 88 mcg capsule 88 mcg PO DAILY cholecalciferol (vitamin D3) 50 mcg (2,000 unit) capsule 50 mcg PO DAILY omega-3 fatty acids [Fish Oil Concentrate] 1,000 mg capsule 1,000 mg PO DAILY lithium carbonate 450 mg tablet extended release 450 mg PO .COMPLEX Rx Instructions: 450 mg PO 8 am 10 pm; topiramate 50 mg tablet 50 mg PO BID Qty: 60 3RF Rx Instructions: Take one tablet twice daily. multivitamin Tablet 1 tab PO DAILY cyclobenzaprine 5 mg tablet 5 mg PO TID PRN (Reason: muscle spasm) Qty: 10 0RF sumatriptan succinate 100 mg tablet See Rx Instructions PO .COMPLEX PRN (Reason: Headache) Rx Instructions: take 1 tab at onset of headache; if no relief, may repeat 1 tab after at least 2 hrs; max = 2 tabs/24 hrs PO Discharge Orders: Discharge ED (Routine); Ordered 01/24/22 Ordered By: Yandel Graham Referrals: Dasia Hsu FNP [Primary Care Provider] - Discharge Diet: Clear Liquid Discharge Activity: Increase activity as tolerated Patient Instructions: Opioid Safety, Pain Management Activity Restrictions/Additional Instructions: Clear liquid diet for next 24 to 48 hours and advance as tolerated. If symptoms persist recommend he follow-up with primary care. He may need further evaluation by gastroenterology. Sign Out Sign Out Data: Patient Sign Out occurred on 01/24/22 at 06:23. Patient's care was discussed, and care was transferred from to Yandel Graham DO. Coding Level of Care Code ED Lead Security Officer for [facility] Fwd Exam Comprehensive
[2022-01-24] MEDS: dicyclomine 10 mg Capsule PO (04:27)
[2022-01-24 04:28] LABS: Basophils # 0.1 10^3/uL (0.0-0.1); Basophils % 0.5 %; Eosinophils # 0.1 10^3/uL (0.0-0.8); Eosinophils % 0.8 %; Hematocrit 50.9 % (42.0-52.0); Hemoglobin 16.3 g/dL (11.7-16.6); Lymphocytes % 11.6 %; Mean Corpuscular Hemoglobin 30.3 pg (28.0-34.0); Mean Corpuscular Volume 94.6 fl (80-94); Mean Platelet Volume 12.2 fL (7.4-10.4); Monocytes # 0.9 10^3/uL (0.2-0.9); Monocytes % 5.1 %; Neutrophils # 13.91 10^3/uL (1.8-7.7); Neutrophils % 81.5 %; Nucleated Red Blood Cells % 0 %; Platelet Count 230 10^3/cmm (130-400); Positive C 1; Red Blood Count 5.38 10^6/uL (4.1-5.3); Red Cell Distribution Width 12.3 % (12.1-15.1); White Blood Count 17.1 10^3/uL (4.0-10.0)
[2022-01-24] MEDS: lidocaine 2% viscous 15 ML, aluminum-mag hydrox-simethicon 30 ML, sucralfate oral liq 1 GM PO (04:28)
[2022-01-24 04:47] LABS: Slide Review Slide Review Perform
--- NOTE | 2022-01-24 04:57 | CTR_ITS ---
PROCEDURE INFORMATION: Exam: CT Abdomen And Pelvis Without Contrast Exam date and time: 01/24/2022 5:06 AM Age: 46 years old Clinical indication: Abdominal pain; Localized; Right; Prior surgery; Surgery type: Hernia repair; Patient HX: C/O RT sided abd pain; Additional info: Ruq/rlq abdominal pain, ? appy vs other TECHNIQUE: Imaging protocol: Computed tomography of the abdomen and pelvis without contrast. Radiation optimization: All CT scans at this facility use at least one of these dose optimization techniques: automated exposure control; mA and/or kV adjustment per patient size (includes targeted exams where dose is matched to clinical indication); or iterative reconstruction. COMPARISON: NM hepatobiliary w phar* [id number] 10/24/2021 10:27 AM RADIATION DOSE METRICS: Total DLP (mGy-cm): 1089.13 FINDINGS: Liver: The liver is normal in size and contour. Gallbladder and bile ducts: The gallbladder is distended with normal wall thickness and does not demonstrate calcified gallstones. No intra- or extra-hepatic biliary ductal dilatation. Pancreas: The pancreas appears normal. Spleen: The spleen appears normal. Adrenal glands: The adrenals appear normal. Kidneys and ureters: The kidneys empty into non-dilated ureters. No renal or ureteral stones are identified. No perinephric or periureteral fat tissue stranding is identified. Stomach and bowel: The stomach is unremarkable. The small bowel loops are not abnormally dilated. The large bowel loops are not abnormally dilated. Appendix: The appendix appears normal. Intraperitoneal space: No ascites or significant fluid collection. Vasculature: The aorta is nonaneurysmal. The IVC appears normal. Lymph nodes: There are no enlarged lymph nodes. Urinary bladder: The bladder is distended and demonstrates no focal contour abnormality. Reproductive: Unremarkable as visualized. Bones/joints: Degenerative disc disease at L5-S1. Soft tissues: Unremarkable. CT/CT abdomen pelvis wo con [id number] IMPRESSION: No acute abdominopelvic abnormality identified. COMMENTS: Evaluation of solid organs and vascular structures is limited as no IV contrast was administered.
[2022-01-24 05:15] LABS: Add Urine Microscopic? NO; Charge for UA Resulting for Rev
[2022-01-24 05:27] LABS: Bilirubin Urine Neg (Negative); Blood Urine Neg (Negative); Glucose Urine UA Norm (Normal); Ketones Urine 2+ (Negative); Leukocyte Esterase Urine Negative (Negative); Nitrate Urine Negative (Negative); Protein Urine Neg (Negative); Urine Appearance Clear (CLEAR); Urine Color Yellow (Yellow); Urobilinogen Urine Norm (Negative); pH Urine 5 (5-7)
[2022-01-24] MEDS: ketorolac 30 mg/mL INJ 15 MG IVP (05:32)
[2022-01-24] MEDS: sodium chloride 0.9% 1,000 ML 999 ML IV (05:33)
[2022-01-24 06:02] LABS: Alanine Aminotransferase 28 U/L (0-41); Albumin Level 4.4 g/dL (3.5-5.2); Alkaline Phosphatase 61 U/L (40-130); Blood Urea Nitrogen 13 mg/dL (6-20); Calcium 9.6 mg/dL (8.5-10.5); Carbon Dioxide 23 mmol/L (22-29); Chloride 101 mmol/L (98-107); Globulin 2.9 g/dL (1.3-4.6); Glomerular Filtration Rate 55.1 mL/min (90-130); Glucose 100 mg/dL (65-115); Lipase 40 U/L (13-60); Osmolality Calculated 284 mOsm/kg (285-295); Sodium 137 mmol/L (136-145); Total Bilirubin 0.5 mg/dL (0.15-1.2); Total Protein 7.3 g/dL (6.6-8.7)
[2022-01-24 06:06] LABS: Aspartate Amino Transferase 20 U/L (0-40)
== END 2022-01-24 07:56 | disposition home or self-care (01) ==
PROVIDERS: Emergency Medicine; Emergency Provider Family Medicine; PCP Nurse Practitioner
DX: K58.1 Irritable bowel syndrome with constipation (principal)
CPT/HCPCS: 74176; 80053; 81003; 83690; 85025; 96361; 96374; 99285; J1885; J7030

== ENCOUNTER 2022-03-02 15:32 | Outpatient (CLI) | payer OTHER, SELFPAY ==
--- NOTE | 2022-03-02 | US_ITS ---
WS: [id number] THYROID ULTRASOUND HISTORY: ELEVATED TSH COMPARISON: None available. Right lobe: 1.6 cm x 1.3 cm x 3.9 cm (w x ap x l). Volume: 4.2 cm3. Normal size and echotexture. No significant are dominant nodules are present. Left lobe: 1.5 cm x 1.2 cm x 4.1 cm (w x ap x l). Volume: 3.9 cm3. Normal size and echotexture. No significant or dominant nodules are present. Isthmus: 0.3 cm. US/US thyroid [id number] IMPRESSION: Normal thyroid ultrasound.
== END 2022-03-02 15:33 | disposition home or self-care (01) ==
LOC: RAD 15:33
PROVIDERS: PCP Nurse Practitioner; Visit Provider Nurse Practitioner
DX: R79.89 Other specified abnormal findings of blood chemistry (principal)
CPT/HCPCS: 76536

== ENCOUNTER 2022-03-05 06:00 | Outpatient (RCR) | payer OTHER, SELFPAY | END 2022-03-12 23:59 | disposition home or self-care (01) | LOC: SPT 06:00 | PROVIDERS: PCP Nurse Practitioner; Visit Provider Nurse Practitioner | DX: M99.03 Segmental and somatic dysfunction of lumbar region (principal) | CPT/HCPCS: 97110; 97162 ==

== ENCOUNTER 2022-03-13 06:00 | Outpatient (RCR) | payer OTHER, SELFPAY | END 2022-04-11 23:59 | disposition home or self-care (01) | LOC: SPT 06:00 | PROVIDERS: PCP Nurse Practitioner; Visit Provider Nurse Practitioner | DX: M99.03 Segmental and somatic dysfunction of lumbar region (principal) | CPT/HCPCS: 97110 ==